=== PATIENT | female | born 1985 | race Caucasian/White ===

== ENCOUNTER 2018-10-14 11:54 | Inpatient (IN) ==
[2018-10-14] MEDS ORDERED: Sod Chloride 0.9% Inj 1,000 ML IV.SIG ONE (12:43)
--- NOTE | 2018-10-14 12:56 | ED ---
HPI General Chief Complaint: Overdose Stated Complaint: Poss OD Time Seen by Provider: 10/14/18 12:33 Source: patient and EMS Mode of arrival: EMS Limitations: no limitations History of Present Illness HPI Narrative: 33 year old female who presents to the ED for evaluation of drug overdose. She states that she's been using meth for the last four days in addition to her usual IV heroin use. She states that the overdose was accidental. She was previously admitted two weeks ago for viral meningitis vs. endocarditis but states her symptoms have resolved. She received an unknown amount of Narcan by [facility] at 11:45AM and is alert and oriented x 3. She is cooperative and states she is trying to get clean. She denies any medical history. She is unsure whether she is . She denies chest pain, abdominal pain, nausea and vomiting. Patient denies any fevers chills or sweats. Has not seen anybody since been discharged. She continues to use heroin. No suicidal or homicidal ideation. Related Data Home Medications Medication Instructions Recorded Confirmed No Known Home Medications 10/03/18 10/14/18 Allergies Allergy/AdvReac Type Severity Reaction Status Date / Time No Known Allergies Allergy Verified 10/14/18 12:38 Review of Systems ROS: all other systems reviewed are negative [facility] Medical History Medical History Hepatitis C (Acute) Patient denies significant medical history (Acute) Surgical History Surgical History H/O breast augmentation (Acute) History of section (Acute) Social History Social History Substance History: Active Abuse Second Hand Smoke Exposure: Yes Smoking Status: Current every day smoker Tobacco Type: Cigarettes How Often Do You Have a Drink Containing Alcohol: Monthly or less Recent Travel in [facility] within the Last 8 Weeks: No Recent Out of Country Travel within the Last 8 Weeks: No Substance Abuse Detail Heroin: Substance Use Status: Active Route Used Substance Abuse: Intravenously Immunization History Tetanus Immunization: Unsure Exam Narrative Exam Narrative: gENERAL: Well appearing SKIN: Focused skin assessment warm/dry. Patient does have track morgan noted. HEAD: Atraumatic. Normocephalic. EYES: Pupils equal and round. No scleral icterus. No injection or drainage. ENT: No nasal bleeding or discharge. Mucous membranes pink and moist. Tongue is midline. No uvula deviation. NECK: Trachea midline. No JVD. CARDIOVASCULAR: Regular rate and rhythm. No murmur appreciated. RESPIRATORY: No accessory muscle use. Clear to auscultation. Breath sounds equal bilaterally. GASTROINTESTINAL: Abdomen soft, non-tender, nondistended. Hepatic and splenic margins not palpable. MUSCULOSKELETAL: No obvious deformities. No clubbing. No cyanosis. No edema. Full range of motion of the upper and lower extremities bilaterally. 2+ pulses bilaterally NEUROLOGICAL: Awake and alert. No obvious cranial nerve deficits. Motor grossly within normal limits. Normal speech. PSYCHIATRIC: Appropriate mood and affect; insight and judgment normal. Course Initial Documented Vital Signs Pulse Rate 110 H 10/14/18 12:38 Respiratory Rate 21 10/14/18 12:38 Blood Pressure 150/95 H 10/14/18 12:38 Pulse Oximetry 99 10/14/18 12:38 Last Documented Vital Signs Temperature 98.6 F 10/14/18 13:07 Pulse Rate 83 10/14/18 14:06 Respiratory Rate 16 10/14/18 14:06 Blood Pressure 130/74 10/14/18 14:06 Pulse Oximetry 100 10/14/18 14:06 Medical Decision Making MDM Narrative Medical decision making narrative: 33-year-old female who presents to the ED for evaluation of overdose. Patient was properly examined and was found to have signs and symptoms consistent with overdose. Labs were ordered. Patient had a pulse of blood culture when she was admitted last week but is unclear as to if she was evaluated and treated for this. There is no comments about this. She was given antibiotics and she was worked up for meningitis versus endocarditis. Echo was normal. This time labs were ordered. Fluids were given. Labs here were essentially unremarkable. Patient has no signs of infection but she did had a positive culture for staph aureus. My attending Dr. Grimes evaluated the patient and spoke with infectious disease in regards to this. There is no note on the admitting notes about what happened or what was done for the blood cultures. Per Dr. ramos from infectious disease she recommended because of the patient's blood culture to be admitted and started on Ancef to better assess what she needs to be done for this. My attending Dr. Grimes spoke with Dr ramos about it. HEPAS paged Medical Screen Exam Complete: Yes Emergency Medical Condition: Yes Differential Diagnosis Differential Diagnosis: Overdose versus opiate use versus sepsis versus bacteremia Medical Records Medical records reviewed: Yes I reviewed the patient's medical records. Lab Data Lab results reviewed: Yes I reviewed the patient's lab results. Result diagrams: 10/14/18 12:58 10/14/18 12:58 POC Results POC Urine Results Negative Lab Results 10/14/18 10/14/18 10/14/18 Range/Units 12:58 12:58 12:58 WBC 9.3 (4.0-11.0) th/mm3 RBC 4.42 (4.00-5.30) mil/mm3 Hgb 12.1 (11.6-15.3) gm/dL Hct 35.8 (35.0-46.0) % MCV 81.1 (80.0-100.0) fL MCH 27.5 (27.0-34.0) pg MCHC 33.9 (32.0-36.0) % RDW 17.0 (11.6-17.2) % Plt Count 359 D (150-450) th/mm3 MPV 8.0 (7.0-11.0) fL Neut % (Auto) 82.2 H (16.0-70.0) % Lymph % (Auto) 11.3 (9.0-44.0) % [place] % (Auto) 5.7 (0.0-8.0) % Eos % (Auto) 0.3 (0.0-4.0) % Baso % (Auto) 0.5 (0.0-2.0) % Neut # (Auto) 7.6 (1.8-7.7) th/mm3 Lymph # (Auto) 1.0 (1.0-4.8) th/mm3 [place] # (Auto) 0.5 (0.0-0.9) th/mm3 Eos # (Auto) 0.0 (0.0-0.4) th/mm3 Baso # (Auto) 0.0 (0.0-0.2) th/mm3 WBC Differential . Differential Comment Auto diff final Sodium 140 (136-145) meq/L Potassium 3.9 (3.5-5.1) meq/L Chloride 105 (98-107) meq/L Carbon Dioxide 25.8 (21.0-32.0) meq/L Anion Gap 9 (5-15) meq/L BUN 24 H (7-18) mg/dL Creatinine 0.90 (0.50-1.00) mg/dL Estimated GFR 73 L (>89) mL/min Random Glucose 97 (74-106) mg/dL Lactic Acid 0.8 (0.4-2.0) mmol/L Calcium 8.6 (8.5-10.1) mg/dL Total Bilirubin 2.0 H (0.2-1.0) mg/dL AST 37 (15-37) U/L ALT 32 (10-53) U/L Alkaline Phosphatase 115 (45-117) U/L Total Protein 7.5 (6.4-8.2) g/dL Albumin 3.9 (3.4-5.0) g/dL Discharge Plan Discharge Disposition Patient Disposition: ED Admit(ED Internal Use Only) Discharge Order Discharge Orders: ED Use Only Admit Order (Routine); Ordered 10/14/18 Ordered By: Juan Mix Discharge Details Diagnosis: Bacteremia Physicians Team ED Provider: Aline Grimes ED Midlevel Provider: uJan Mix Primary Care Provider: UNKNOWN, Rxs /Orders / Referrals /Forms Prescriptions: No Action No Known Home Medications RF: 0 Status ED Status: Admitted Observation Patient
[2018-10-14 13:17] LABS: Baso % (Auto) 0.5 % (0.0-2.0); Eos % (Auto) 0.3 % (0.0-4.0); Hematocrit 35.8 % (35.0-46.0); Hemoglobin 12.1 gm/dL (11.6-15.3); Lymph % (Auto) 11.3 % (9.0-44.0); Mean Corpuscular HGB Conc 33.9 % (32.0-36.0); Mean Corpuscular Hemoglobin 27.5 pg (27.0-34.0); Mean Corpuscular Volume 81.1 fL (80.0-100.0); Mono # (Auto) 0.5 th/mm3 (0.0-0.9); Mono % (Auto) 5.7 % (0.0-8.0); Neut # (Auto) 7.6 th/mm3 (1.8-7.7); Neut % (Auto) 82.2 % (16.0-70.0); Platelet Count 359 th/mm3 (150-450); Red Blood Count 4.42 mil/mm3 (4.00-5.30); White Blood Count 9.3 th/mm3 (4.0-11.0)
[2018-10-14 13:33] LABS: Albumin 3.9 g/dL (3.4-5.0); Anion Gap 9 meq/L (5-15); Aspartate Aminotransferase 37 U/L (15-37); Blood Urea Nitrogen 24 mg/dL (7-18); Calcium 8.6 mg/dL (8.5-10.1); Carbon Dioxide 25.8 meq/L (21.0-32.0); Chloride 105 meq/L (98-107); Glomerular Filtration Rate 73 mL/min (>89); Glucose,Random 97 mg/dL (74-106); Potassium 3.9 meq/L (3.5-5.1); Sodium 140 meq/L (136-145)
[2018-10-14 13:36] LABS: Alanine Aminotransferase 32 U/L (10-53); Alkaline Phosphatase 115 U/L (45-117); Total Protein 7.5 g/dL (6.4-8.2)
[2018-10-14] MEDS ORDERED: ceFAZolin Inj 1 GM in Sodium Chlor 0.9% Inj 100 ML IV.SIG ONE (14:18)
[2018-10-14] MEDS ORDERED: Naloxone Inj 0.4 MG/ML Vial IV.PUSH ONE (14:20)
[2018-10-14] MEDS ORDERED: Acetaminophen 325 MG Tablet PO PRN (14:57)
--- NOTE | 2018-10-14 15:03 | P.HPIM ---
History of Present Illness Primary Care Physician: UNKNOWN Chief Complaint: drug overdose History of Present Illness: patient is a 33 y/o female with history of IVDA, was initially brought to ER after she overdosed with IV drug. she uses IV Heroin but says that ' I'm sure it was fentanyl'. at the time of my evaluation she was awake, fully orinted with no pain, sob, dizziness, chest pain. she was admitted to this hospital about a week ago with headache and possible meningitis. LP was done. she received IV antibiotics. CSF culture was negative. her clinical condition improved and then she was discharged home. she denies any specific complaints since then. however she was found to have staph bacteremia from the blood culture last admission for which the medicine was called. Review of Systems Review of Systems: all other systems reviewed are negative [facility] Medical History Medical History Hepatitis C (Acute) Patient denies significant medical history (Acute) Surgical History Surgical History H/O breast augmentation (Acute) History of section (Acute) Social History Social History Substance History: Active Abuse Second Hand Smoke Exposure: Yes Smoking Status: Current every day smoker Tobacco Type: Cigarettes How Often Do You Have a Drink Containing Alcohol: Monthly or less Recent Travel in [facility] within the Last 8 Weeks: No Recent Out of Country Travel within the Last 8 Weeks: No Substance Abuse Detail Heroin: Substance Use Status: Active Route Used Substance Abuse: Intravenously Immunization History Tetanus Immunization: Unsure Medications and Allergies Allergies Allergy/AdvReac Type Severity Reaction Status Date / Time No Known Allergies Allergy Verified 10/14/18 12:38 Home Medications Medication Instructions Recorded Confirmed Type No Known Home Medications 10/03/18 10/14/18 History Active Medications: Active Medications Cefazolin Sodium 1 gm/ Sodium (Chloride) 100 mls @ 100 mls/hr IV.SIG ONCE ONE Stop: 10/14/18 15:17 Last Admin: 10/14/18 14:51 Dose: 100 mls/hr Physical Exam Vital signs: Vital Signs 10/14/18 12:38 10/14/18 13:07 02/19/19 14:06 Temperature 98.6 F Pulse Rate 110 H 97 H 83 Respiratory Rate 21 16 16 Blood Pressure 150/95 H 130/74 Pulse Oximetry 99 100 100 Intake & Output 10/13/18 10/14/18 10/14/18 18:59 06:59 18:59 Intake Total 1000 / 1000 Balance 1000 / 1000 Weight 63.503 kg Intake: IV 1000 / 1000 NS Inj 1,000 ML @ Wide Open IV. 1000 / 1000 SIG BOLUS ONE Rx#:[id number] Constitutional no acute distress Routine HEENT Exam Eye: Present PERRL Routine Neck Exam Present supple Routine Respiratory Exam Present CTA bilaterally Routine Cardiovascular Exam Present RRR Routine Abdominal Exam Present soft Routine Extremities Exam Comments: no pedal edema. Routine Neurological Exam Present alert and oriented X3 Results Labs CBC & Chem 7: 10/14/18 12:58 10/14/18 12:58 Caprini VTE Risk Assessment Capjalyn VTE Risk Assessment: No/Low Risk (score <= 1) Gopalrini Risk Assessment Model: Point Value = 1 Point Value = 2 Point Value = 3 Point Value = 5 Age 41-60 Minor surgery BMI > 25 kg/m2 Swollen legs Varicose veins or History of unexplained or recurrent spontaneous Oral contraceptives or hormone replacement Sepsis (< 1 month) Serious lung disease, including pneumonia (< 1 month) Abnormal pulmonary function Acute myocardial infarction Congestive heart failure (< 1 month) History of inflammatory bowel disease Medical patient at bed rest Age 61-74 Arthroscopic surgery Major open surgery (> 45 min) Laparoscopic surgery (> 45 min) Malignancy Confined to bed (> 72 hours) Immobilizing plaster cast Central venous access Age >= 75 History of VTE Family history of VTE Factor V Leiden Prothrombin [id number] Lupus anticoagulant Anticardiolipin antibodies Elevated serum homocysteine Heparin-induced thrombocytopenia Other congenital or acquired thrombophilia Stroke (< 1 month) Elective arthroplasty Hip, pelvis, or leg fracture Acute spinal cord injury (< 1 month) Prophylaxis Regimen: Total Risk Factor Score Risk Level Prophylaxis Regimen 0-1 Low Early ambulation 2 Moderate Order ONE of the following: *Sequential Compression Device (SCD) *Heparin 5000 units SQ BID 3-4 Higher Order ONE of the following medications: *Heparin 5000 units SQ TID *Enoxaparin/Lovenox 40 mg SQ daily (WT < 150 kg, CrCl > 30 mL/min) *Enoxaparin/Lovenox 30 mg SQ daily (WT < 150 kg, CrCl > 10-29 mL/min) *Enoxaparin/Lovenox 30 mg SQ BID (WT < 150 kg, CrCl > 30 mL/min) AND/OR *Sequential Compression Device (SCD) 5 or more Highest Order ONE of the following medications: *Heparin 5000 units SQ TID (Preferred with Epidurals) *Enoxaparin/Lovenox 40 mg SQ daily (WT < 150 kg, CrCl > 30 mL/min) *Enoxaparin/Lovenox 30 mg SQ daily (WT < 150 kg, CrCl > 10-29 mL/min) *Enoxaparin/Lovenox 30 mg SQ BID (WT < 150 kg, CrCl > 30 mL/min) AND *Sequential Compression Device (SCD) Assessment and Plan Plan A/P - staph bacteremia ( MSSA); positive blood culture from the last admission. start on Ancef- repeat the blood culture and consult ID. had an echo last admission with no evidence of vegetation. -IV drug overdose continue with supportive care- counselled on drug abuse cessation. Discussed Condition With: ER mid-level and . Discharge Planning: home pending the work-up.
[2018-10-14] MEDS: ceFAZolin Inj 1 GM in Sodium Chlor 0.9% Inj 100 ML IV.SIG SCH (22:18)
[2018-10-15] MEDS: ceFAZolin Inj 1 GM in Sodium Chlor 0.9% Inj 100 ML IV.SIG SCH ×2 (08:12→15:25)
--- NOTE | 2018-10-15 09:09 | P.PNIM ---
Subjective Interval history: f/u; bacteremia in no acute distress. no fever. no new complaints. Physical Exam Vital signs: Vital Signs 10/14/18 12:38 10/14/18 13:07 10/14/18 14:06 Temperature 98.6 F Pulse Rate 110 H 97 H 83 Respiratory Rate 21 16 16 Blood Pressure 150/95 H 130/74 Pulse Oximetry 99 100 100 10/14/18 17:01 10/14/18 20:00 10/15/18 00:00 Temperature 98.2 F 98.5 F Pulse Rate 82 90 73 Respiratory Rate 16 20 20 Blood Pressure 115/64 113/56 L Pulse Oximetry 99 96 96 10/15/18 04:00 10/15/18 07:31 Temperature 97.9 F 98.3 F Pulse Rate 70 56 L Respiratory Rate 16 Blood Pressure 103/56 L 109/55 L Pulse Oximetry 94 L 96 Intake & Output 10/14/18 10/15/18 10/15/18 18:59 06:59 18:59 Intake Total 1100 / 1100 100 / 100 Balance 1100 / 1100 100 / 100 Weight 63.409 kg Intake: IV 1100 / 1100 100 / 100 NS Inj 1,000 ML @ Wide Open IV. 1000 / 1000 SIG BOLUS ONE Rx#:[id number] Ancef Inj 1 GM In NS Inj 100 ML 100 / 100 100 / 100 @ 200 mls/hr IV.SIG Q8H [facility] Rx #:[id number] Other: # Voids 3 Weight On Admission 63.409 kg Constitutional no acute distress Routine Respiratory Exam Present CTA bilaterally Routine Cardiovascular Exam Present RRR Routine Abdominal Exam Present soft Routine Extremities Exam Comments: no pedal edema. Routine Neurological Exam Present alert and oriented X3 Results Labs CBC & Chem 7: 10/14/18 12:58 10/14/18 12:58 Assessment and Plan Plan A/P - staph bacteremia ( MSSA); positive blood culture from the last admission. started on Ancef- will follow the repeated blood cultures- ID consulted. had an echo last admission with no evidence of vegetation. -IV drug overdose continue with supportive care- counselled on drug abuse cessation. Discharge Planning: home - pending the repeated blood cultures and ID clearance. Progress Note: Quality VTE Deep Vein Thrombosis/Pulmonary Embolism Present on Admission: No
--- NOTE | 2018-10-15 15:28 | P.CONID ---
History of Present Illness Service: Infectious Disease Consult date: 10/16/18 Requesting Physician: Hood Prescott Reason for Consult: Evaluation and Mment of MSSA bacteremia Primary Care Provider: UNKNOWN Chief Complaint: drug overdose History of Present Illness: is a 33 y/o CF with PMHx of Hepatitis C, IVDA with Meth, skin lesions on face from meth which she often picks on. Patient was here in August with complains of migraine like headache and underwent an LP, blood cultures, ECHO negative.Her LP findings were not indicative of meningitis. Patient was empirically treated for meningitis for few days before being discharged. Patients blood culture from that admission was reported as positive for MSSA. Unsure if patient signed off AMA but does not appear based on records or patients disclosure if she was on antibiotics post discharge. Patient continues to inject drugs using right jugular veins in her neck. She denies any neck pain or headache. She denies any visual changes. She denies any prior endocarditis. She denies knowing or being treated for any infections related to drug abuse. ID consulted by ED provider for MSSA bacteremia evaluation and Mment. Review of Systems All other systems reviewed negative except as stated in HPI PMFSH - History History Provided By: Patient - Medical History Medical History: Medical History (Last Reviewed 10/14/18 @ 15:03 by Hood Prescott MD) Hepatitis C Patient denies significant medical history - Surgical History Surgical History: Surgical History (Last Reviewed 10/14/18 @ 15:03 by Hood Prescott MD) H/O breast augmentation History of section - Family History Family History: Family History (Last Updated 10/16/18 @ 10:35 by Ivy Saldaña MD) Other No pertinent family history - Tobacco History Second Hand Smoke Exposure: No Tobacco Use In Past 30 Days: Yes Smoking Status: Current every day smoker Tobacco Type: Cigarettes - Alcohol History How Often Do You Have a Drink Containing Alcohol: Never - Substance Use History Substance History: Active Abuse - Substance Use Type Heroin Status: Active Route Used: Intravenously Last Used: 10/14/2018 Reason for Use: Get High Methamphetamine Status: Active Route Used: Intravenously Frequency: 10/12/2016 Reason for Use: Get High - Travel History Recent Travel in the [place] Within the Last 8 Weeks: No Recent Travel Out of the Country Within the Last 8 Weeks: No - Immunization History Tetanus Immunization: Unsure Medications and Allergies Active Medications: Active Medications Acetaminophen (Tylenol) 650 mg PO Q4H PRN PRN Reason: fever/headache Cefazolin Sodium 1 gm/ Sodium (Chloride) 100 mls @ 200 mls/hr IV.SIG Q8H [facility] Last Admin: 10/15/18 15:25 Dose: 200 mls/hr Allergies Allergy/AdvReac Type Severity Reaction Status Date / Time No Known Allergies Allergy Verified 10/14/18 12:38 Home Medications Medication Instructions Recorded Confirmed Type No Known Home Medications 10/03/18 10/14/18 History Exam Vital signs: Vital Signs 10/14/18 17:01 10/14/18 20:00 10/15/18 00:00 Temperature 98.2 F 98.5 F Pulse Rate 82 90 73 Respiratory Rate 16 20 20 Blood Pressure 115/64 113/56 L Pulse Oximetry 99 96 96 10/15/18 04:00 10/15/18 07:31 10/15/18 12:00 Temperature 97.9 F 98.3 F 98.4 F Pulse Rate 70 56 L 69 Respiratory Rate 16 16 Blood Pressure 103/56 L 109/55 L 113/57 L Pulse Oximetry 94 L 96 100 Intake & Output 10/14/18 10/15/18 10/15/18 18:59 06:59 18:59 Intake Total 1100 / 1100 100 / 100 100 / 100 Balance 1100 / 1100 100 / 100 100 / 100 Weight 63.409 kg Intake: IV 1100 / 1100 100 / 100 100 / 100 NS Inj 1,000 ML @ Wide Open IV. 1000 / 1000 SIG BOLUS ONE Rx#:[id number] Ancef Inj 1 GM In NS Inj 100 ML 100 / 100 100 / 100 100 / 100 @ 200 mls/hr IV.SIG Q8H [facility] Rx #:[id number] Other: # Voids 3 Weight On Admission 63.409 kg Narrative: GENERAL: Well-nourished well-developed, not in acute distress SKIN: Meth related facial lesions and scabbing but no evidence of infection Right side of neck with no e.o phlebitis or infection. HEAD: Atraumatic. Normocephalic. No temporal or scalp tenderness. EYES: Pupils equal round and reactive. Scleral icterus. No injection or drainage. No petechia ENT: Nothing abnormal detected NECK: Trachea midline. Supple, nontender, no meningeal signs. CARDIOVASCULAR: HS audible. RESPIRATORY: Clear to auscultation bilaterally. GASTROINTESTINAL: Abdomen soft nontender. MUSCULOSKELETAL: Extremities without clubbing, cyanosis. NEUROLOGICAL: Alert oriented 3. Nonfocal. Psych cooperative IV line sites ok. Results - Labs CBC & Chem 7: 10/14/18 12:58 10/14/18 12:58 - Imaging Venous Doppler Study 10/15/18 00:00 CONCLUSION: 1. Acute occlusive thrombus involving the mid and distal cephalic vein on the left. This is a superficial venous structure. No deep venous thrombosis observed. Assessment and Plan - Plan MSSA bacteremia in Aug admission Meth related skin lesions with scabs ? entry point for infection vs IVDA related. ECHO negative last admission Doppler neck negative. Denies neck pain or any other systemic (pulm or abd symptoms) Recs: Continue Ancef IV If blood cultures remain negative at 48 hrs and clinically stable ok to discharge on oral dicloxacillin for 2 weeks. Please make sure patients as well as Dad cell and contact info updated on chart so if any delayed positive cultures patient may be called back for further evaluation. efe Red
--- NOTE | 2018-10-15 18:27 | US ---
EXAM DATE: 10/15/2018 5:54 PM EST AGE/SEX: 33 years / Female INDICATIONS: Line related septic thrombophlebitis. CLINICAL DATA: This is the patient's initial encounter. Patient reports that signs and symptoms have been present for 1 day and indicates a pain score of 0/10. MEDICAL/SURGICAL HISTORY: Hepatitis C. Drug overdose. IV drug abuse. Staph bacteremia. Breast augmentation. section. COMPARISON: None. FINDINGS: Right Upper Extremity: The vessels are compressible and augmentation response is documented. No fill ing defects are seen. The flow is phasic with respiration. Left Upper Extremity: Echogenic noncompressible material is seen involving the mid and distal cephal ic vein on the left. The remaining venous structures show normal venous waveforms and augmentation. N ormal compressibility. Other: None. CONCLUSION: 1. Acute occlusive thrombus involving the mid and distal cephalic vein on the left. This is a superf icial venous structure. No deep venous thrombosis observed. Electronically signed by: Bob Healy MD Board Certified Radiologist 10/15/2018 6:25 PM EST
[2018-10-16] MEDS: ceFAZolin Inj 1 GM in Sodium Chlor 0.9% Inj 100 ML IV.SIG SCH ×2 (00:19→06:14)
[2018-10-16 08:49] VITALS: BP 111/66; PULSE 67; RESP 20; TEMP 98.4; O2SAT 99
--- NOTE | 2018-10-16 09:22 | P.PNIM ---
Subjective Interval history: f/u; bacteremia in no acute distress. no fever. looks comfortable. no new complaints. Physical Exam Vital signs: Vital Signs 10/15/18 12:00 10/15/18 16:00 10/15/18 20:00 Temperature 98.4 F 98.4 F 98.2 F Pulse Rate 69 69 70 Respiratory Rate 16 16 16 Blood Pressure 113/57 L 103/63 96/52 L Pulse Oximetry 100 100 98 10/16/18 04:00 10/16/18 08:00 Temperature 98.5 F 98.4 F Pulse Rate 54 L 67 Respiratory Rate 16 20 Blood Pressure 108/64 111/66 Pulse Oximetry 100 99 Intake & Output 10/15/18 10/16/18 10/16/18 18:59 06:59 18:59 Intake Total 200 / 200 200 / 200 Balance 200 / 200 200 / 200 Intake: IV 200 / 200 200 / 200 Ancef Inj 1 GM In NS Inj 100 ML 200 / 200 200 / 200 @ 200 mls/hr IV.SIG Q8H [facility] Rx #:[id number] Constitutional no acute distress Routine Respiratory Exam Present CTA bilaterally Routine Cardiovascular Exam Present RRR Routine Abdominal Exam Present soft Routine Extremities Exam Comments: mild swelling of the left arm but with no tenderness. Routine Neurological Exam Present alert and oriented X3 Results Labs CBC & Chem 7: 10/14/18 12:58 10/14/18 12:58 Labs: Microbiology 10/14/18 12:46 Blood - Peripheral Aerobic Blood Culture - Preliminary No growth in 1 day 10/14/18 12:46 Blood - Peripheral Anaerobic Blood Culture - Preliminary No growth in 1 day 10/14/18 12:58 Blood - Peripheral Aerobic Blood Culture - Preliminary No growth in 1 day 10/14/18 12:58 Blood - Peripheral Anaerobic Blood Culture - Preliminary No growth in 1 day Imaging Imaging: Impressions Venous Doppler Study 10/15/18 00:00 CONCLUSION: 1. Acute occlusive thrombus involving the mid and distal cephalic vein on the left. This is a superficial venous structure. No deep venous thrombosis observed. Assessment and Plan Plan A/P - staph bacteremia ( MSSA); positive blood culture from the last admission. started on Ancef- repeated blood cultures negative so far. ID following. had an echo last admission with no evidence of vegetation. -IV drug overdose continue with supportive care- counselled on drug abuse cessation. -left upper extremity superficial phlebitis- continue with symptomatic treatment. Discharge Planning: home - pending ID clearance. Progress Note: Quality VTE Deep Vein Thrombosis/Pulmonary Embolism Present on Admission: No
== END 2018-10-16 13:25 | disposition home or self-care (01) | DRG 918 ==
LOC: NEDA 11:54 → NEPD 11:54 → OBSVTOIN 14:44 → NEPFCDU 17:12
PROVIDERS: ADMIT Internal Medicine; ATTEND Internal Medicine
CPT/HCPCS: 80053; 83605; 84703; 85025; 87040; 90760; 93970; 96360; 99285; J0690; J7030